=== PATIENT | female | born 1985 | race Caucasian/White ===

== ENCOUNTER 2018-05-12 07:32 | Emergency (ER) | payer BC, MEDICAID ==
[2018-05-12] MEDS: KETOROLAC 30 MG INJ IM (10:01)
== END 2018-05-12 10:11 | disposition home or self-care (01) ==
LOC: FTE 07:32
DX: S46.911A Strain of unspecified muscle, fascia and tendon at shoulder and upper arm level, right arm, initial encounter (principal); V49.40XA Driver injured in collision with unspecified motor vehicles in traffic accident, initial encounter
CPT/HCPCS: 81025; 96372; 99284-25